=== PATIENT | female | born 1985 | race Caucasian/White ===

== ENCOUNTER 2016-11-21 12:51 | Inpatient (IN) | payer MEDICAID ==
[~2016-11-21] VITALS: Ht 152.4 cm; Wt 60.8 kg
[2016-11-21] MEDS ORDERED: IOHEXOL-300 100 ML BOTTLE ONE (14:47)
[2016-11-21] MEDS ORDERED: SODIUM CHLORIDE 0.9% 10ML VIAL ONE (14:47)
[2016-11-21 19:30] LABS: BASOPHILS % 0.6 % (0.0-2.0); HEMATOCRIT. 32.1 % (36.0-48.0); HEMOGLOBIN. 10.9 g/dL (12.0-16.0); LYMPHOCYTES % 33.7 % (20.0-50.0); MEAN CORPUSCULAR HEMOGLOBIN 29.1 pg (28.0-32.0); MEAN CORPUSCULAR VOLUME 86.1 fL (81.0-99.0); MEAN PLATELET VOLUME 7.4 fl (7.4-10.4); MONOCYTES % 9.3 % (2.0-8.0); NEUTROPHILS % 52.4 % (40.0-76.0); PLATELET 276 x1000/uL (130-400); RED BLOOD CELL COUNT 3.73 mill/uL (4.2-5.4); RED CELL DISTRIBUTION WIDTH 13.7 % (11.6-14.6)
[2016-11-21 19:35] LABS: CHLORIDE 109 mEq/L (98-107)
[2016-11-21 19:43] LABS: CARBON DIOXIDE 24 mEq/L (21-32)
[2016-11-21] MEDS ORDERED: ACETAMINOPHEN 325MG TABLET PO PRN (22:00)
[2016-11-21] MEDS ORDERED: CLONIDINE 0.1MG TABLET PO PRN (22:00)
[2016-11-21] MEDS ORDERED: TRAMADOL 50MG TABLET PO PRN (22:00)
[2016-11-21] MEDS ORDERED: LORAZEPAM 2MG/ML CPJ IV PRN (22:00)
[2016-11-21] MEDS ORDERED: MAGNESIUM/ALUMINUM HYDROXIDE/SIMETHICONE 30ML UDC PO PRN (22:00)
[2016-11-21] MEDS: SODIUM CHLORIDE 0.9% INJ 3ML FLUSH IVF SCH (22:23)
[2016-11-21 23:08] LABS: CLARITY URINE CLEAR (CLEAR); COLOR URINE YELLOW (YELLOW); GLUCOSE URINE NEGATIVE (NEGATIVE); KETONES URINE NEGATIVE (NEGATIVE); LEUKOCYTE ESTERASE URINE 1+ (NEGATIVE); NITRITE URINE POSITIVE (NEGATIVE); OCCULT BLOOD URINE NEGATIVE (NEGATIVE); PH URINE 7.5 (4.5-8.0); PROTEIN URINE NEGATIVE (NEGATIVE); SPECIFIC GRAVITY URINE 1.019 (1.005-1.030); UROBILINOGEN URINE 0.2 E.U./dL (0.2-1.0)
[2016-11-22] MEDS ORDERED: POTASSIUM CHLORIDE 20MEQ TABLET SR PO SCH (02:45)
[2016-11-22] MEDS ORDERED: SODIUM CHLORIDE 10% FOR INH 15ML VIAL NEB INH NR (05:15)
[2016-11-22 06:20] VITALS: BP 100/65
[2016-11-22 08:00] VITALS: BP 100/71
[2016-11-22] MEDS ORDERED: ABAC1TAB14 PO (10:52)
[2016-11-22 12:00] VITALS: BP 110/60
[2016-11-22] MEDS: SODIUM CHLORIDE 0.9% INJ 3ML FLUSH IVF SCH ×2 (14:26→21:03)
[2016-11-22] MEDS: CEFTRIAXONE 1 G PREMIX 50 ML IV SCH (15:50)
[2016-11-22] MEDS: AZITHROMYCIN 500 MG TABLET PO SCH (15:50)
[2016-11-22 16:00] VITALS: BP 100/64
[2016-11-22 20:00] VITALS: BP 93/64
[2016-11-22] MEDS ORDERED: PATIENT OWN MED PO SCH (20:00)
[2016-11-23] VITALS (7 sets, daily range): BP systolic 85–103; BP diastolic 20–70
[2016-11-23] MEDS: SODIUM CHLORIDE 0.9% INJ 3ML FLUSH IVF SCH ×3 (05:53→21:50)
[2016-11-23 06:43] LABS: HEPATITIS B SURFACE ANTIGEN NEGATIVE
[2016-11-23] MEDS: AZITHROMYCIN 500 MG TABLET PO SCH (09:22)
[2016-11-23] MEDS: CEFTRIAXONE 1 G PREMIX 50 ML IV SCH (15:51)
[2016-11-23] MEDS: TRIUMEQ PO SCH (21:49)
[2016-11-24] VITALS: BP 97/56
[2016-11-24 04:00] VITALS: BP 125/75
[2016-11-24] MEDS: SODIUM CHLORIDE 0.9% INJ 3ML FLUSH IVF SCH ×3 (06:00→20:45)
[2016-11-24 06:30] LABS: CARBON DIOXIDE 21 mEq/L (21-32); CHLORIDE 106 mEq/L (98-107)
[2016-11-24 06:33] LABS: BASOPHILS % 0.5 % (0.0-2.0); HEMATOCRIT. 33.2 % (36.0-48.0); HEMOGLOBIN. 11.4 g/dL (12.0-16.0); LYMPHOCYTES % 33.2 % (20.0-50.0); MEAN CORPUSCULAR HEMOGLOBIN 29.8 pg (28.0-32.0); MEAN CORPUSCULAR VOLUME 86.9 fL (81.0-99.0); MEAN PLATELET VOLUME 8.3 fl (7.4-10.4); NEUTROPHILS % 48.3 % (40.0-76.0); PLATELET 268 x1000/uL (130-400); RED BLOOD CELL COUNT 3.82 mill/uL (4.2-5.4); RED CELL DISTRIBUTION WIDTH 14.3 % (11.6-14.6)
[2016-11-24 08:00] VITALS: BP 99/56
[2016-11-24 09:27] LABS: ABSOLUTE EOSINOPHILS 0.8 x10E3/uL (0.0-0.4); ABSOLUTE MONOCYTES 1.2 x10E3/uL (0.1-0.9); ABSOLUTE NEUTROPHILS 7.6 x10E3/uL (1.4-7.0); BASOPHILS 0 % (.); HEMATOCRIT 36.9 % (34.0-46.6); HEMOGLOBIN 12.2 g/dL (11.1-15.9); IMMATURE GRANULOCYTES 0 % (.); LYMPHOCYTES 30 % (.); MEAN CORPUSCULAR HEMOGLOBIN 29.6 pg (26.6-33.0); MEAN CORPUSCULAR HGB CONC. 33.1 g/dL (31.5-35.7); MEAN CORPUSCULAR VOLUME 90 fL (79-97); MONOCYTES 9 % (.); NEUTROPHILS 55 % (.); PLATELETS 315 x10E3/uL (150-379); RBC 4.12 x10E6/uL (3.77-5.28); RED CELL DISTRIBUTION WIDTH 14.3 % (12.3-15.4); WBC 13.6 x10E3/uL (3.4-10.8)
[2016-11-24 12:00] VITALS: BP 129/71
[2016-11-24 13:16] LABS: % CD 4 POS. LYMPHOCYTES 11.1 % (30.8-58.5); % CD 8 POS. LYMPH 54.8 % (12.0-35.5); ABSOLUTE CD 3 2680 /uL (622-2402); ABSOLUTE CD 4 HELPER 444 /uL (359-1519); ABSOLUTE CD 8 SUPPRESSOR 2192 /uL (109-897)
[2016-11-24 16:00] VITALS: BP 112/72
[2016-11-24 18:06] LABS: QFT MITOGEN VALUE 2.75 IU/mL (.); QFT TB AG VALUE 0.08 IU/mL (.); QFT TB GOLD Negative (Negative)
[2016-11-24 20:00] VITALS: BP 97/63
[2016-11-24] MEDS: TRIUMEQ PO SCH (20:45)
[2016-11-25] VITALS: BP 112/67
[2016-11-25 04:00] VITALS: BP 103/70
[2016-11-25] MEDS: SODIUM CHLORIDE 0.9% INJ 3ML FLUSH IVF SCH ×3 (06:39→20:08)
[2016-11-25 08:00] VITALS: BP 97/59
[2016-11-25 12:00] VITALS: BP 95/75
[2016-11-25 16:00] VITALS: BP 96/62
[2016-11-25 20:00] VITALS: BP 92/57
[2016-11-25] MEDS: TRIUMEQ PO SCH (20:07)
[2016-11-26] VITALS: BP 116/66
[2016-11-26 04:00] VITALS: BP 96/59
[2016-11-26] MEDS: SODIUM CHLORIDE 0.9% INJ 3ML FLUSH IVF SCH ×3 (06:18→22:30)
[2016-11-26 08:00] VITALS: BP 101/68
[2016-11-26 12:00] VITALS: BP 105/71
[2016-11-26 16:00] VITALS: BP 105/63
[2016-11-26 20:00] VITALS: BP 107/61
[2016-11-26] MEDS: TRIUMEQ PO SCH (20:01)
[2016-11-27] VITALS: BP 96/51
[2016-11-27 04:00] VITALS: BP 117/61
[2016-11-27 05:25] LABS: BASOPHILS % 0.9 % (0.0-2.0); EOSINOPHILS % 8.3 % (0.0-5.0); HEMATOCRIT. 32.9 % (36.0-48.0); MEAN CORPUSCULAR HEMOGLOBIN 29.4 pg (28.0-32.0); MEAN CORPUSCULAR VOLUME 87.6 fL (81.0-99.0); MEAN PLATELET VOLUME 8.2 fl (7.4-10.4); MONOCYTES % 8.4 % (2.0-8.0); NEUTROPHILS % 37.4 % (40.0-76.0); PLATELET 286 x1000/uL (130-400); RED BLOOD CELL COUNT 3.75 mill/uL (4.2-5.4); RED CELL DISTRIBUTION WIDTH 13.8 % (11.6-14.6)
[2016-11-27] MEDS: SODIUM CHLORIDE 0.9% INJ 3ML FLUSH IVF SCH ×3 (06:03→22:00)
[2016-11-27 06:46] LABS: CARBON DIOXIDE 22 mEq/L (21-32); CHLORIDE 107 mEq/L (98-107); PHOSPHORUS 3.7 mg/dL (2.5-4.9)
[2016-11-27 08:00] VITALS: BP 100/58
[2016-11-27 12:00] VITALS: BP 114/68
[2016-11-27 16:00] VITALS: BP 110/70
[2016-11-27 20:00] VITALS: BP 101/66
[2016-11-27] MEDS: TRIUMEQ PO SCH (20:33)
[2016-11-28] VITALS: BP 97/62
[2016-11-28 04:00] VITALS: BP 96/52
[2016-11-28 08:00] VITALS: BP 90/55
[2016-11-28 12:00] VITALS: BP 105/60
[2016-11-28] MEDS: SODIUM CHLORIDE 0.9% INJ 3ML FLUSH IVF SCH (14:00)
[2016-11-28 16:00] VITALS: BP 100/63
[2016-11-28 20:00] VITALS: BP 103/64
[2016-11-28] MEDS: TRIUMEQ PO SCH (21:22)
[2016-11-29] VITALS: BP 95/56
[2016-11-29 04:00] VITALS: BP 97/60
[2016-11-29 08:00] VITALS: BP 99/61
[2016-11-29 12:00] VITALS: BP 109/64
[2016-11-29] MEDS: SODIUM CHLORIDE 0.9% INJ 3ML FLUSH IVF SCH ×2 (13:50→21:19)
[2016-11-29 16:00] VITALS: BP 101/64
[2016-11-29 20:00] VITALS: BP 94/61
[2016-11-29] MEDS: TRIUMEQ PO SCH (21:21)
[2016-11-30] VITALS: BP 92/55
[2016-11-30] MEDS: SODIUM CHLORIDE 0.9% INJ 3ML FLUSH IVF SCH ×3 (06:00→20:55)
[2016-11-30 08:00] VITALS: BP 95/56
[2016-11-30 12:00] VITALS: BP 96/68
[2016-11-30] MEDS ORDERED: SODIUM CHLORIDE 10% FOR INH 15ML VIAL NEB INH NR (12:30)
[2016-11-30 16:00] VITALS: BP 103/70
[2016-11-30 20:00] VITALS: BP 92/58
[2016-11-30] MEDS: TRIUMEQ PO SCH (20:52)
[2016-12-01] VITALS: BP 84/48
[2016-12-01 04:00] VITALS: BP 88/56
[2016-12-01] MEDS: SODIUM CHLORIDE 0.9% INJ 3ML FLUSH IVF SCH ×3 (06:45→20:22)
[2016-12-01 08:00] VITALS: BP 95/50
[2016-12-01 16:00] VITALS: BP 98/58
[2016-12-01 20:00] VITALS: BP 94/66
[2016-12-01] MEDS: TRIUMEQ PO SCH (20:20)
[2016-12-02] VITALS (7 sets, daily range): BP systolic 91–121; BP diastolic 53–77
[2016-12-02] MEDS: SODIUM CHLORIDE 0.9% INJ 3ML FLUSH IVF SCH ×3 (05:44→22:00)
[2016-12-02] MEDS: TRIUMEQ PO SCH (19:32)
[2016-12-03] VITALS: BP 121/69
[2016-12-03 04:00] VITALS: BP 98/50
[2016-12-03] MEDS: SODIUM CHLORIDE 0.9% INJ 3ML FLUSH IVF SCH ×3 (05:17→21:56)
[2016-12-03 08:00] VITALS: BP 98/69
[2016-12-03 12:00] VITALS: BP 106/74
[2016-12-03 15:35] VITALS: BP 110/74
[2016-12-03 20:00] VITALS: BP 101/65
[2016-12-03] MEDS: TRIUMEQ PO SCH (20:50)
[2016-12-04] VITALS: BP 93/56
[2016-12-04 04:00] VITALS: BP 94/62
[2016-12-04] MEDS: SODIUM CHLORIDE 0.9% INJ 3ML FLUSH IVF SCH ×3 (05:20→21:02)
[2016-12-04 08:00] VITALS: BP 99/66
[2016-12-04 12:00] VITALS: BP 106/66
[2016-12-04 16:20] VITALS: BP 100/63
[2016-12-04 20:00] VITALS: BP 95/56
[2016-12-04] MEDS: TRIUMEQ PO SCH (21:01)
[2016-12-05] VITALS: BP 101/57
[2016-12-05 04:00] VITALS: BP 88/57
[2016-12-05] MEDS: SODIUM CHLORIDE 0.9% INJ 3ML FLUSH IVF SCH ×3 (06:00→22:00)
[2016-12-05 08:00] VITALS: BP 102/61
[2016-12-05 16:13] VITALS: BP 112/62
[2016-12-05] MEDS ORDERED: RIFABUTIN 150 MG PO NR (18:00)
[2016-12-05] MEDS: ETHAMBUTOL HCL 100 MG PO SCH (18:21)
[2016-12-05 20:00] VITALS: BP 107/71
[2016-12-05] MEDS: TRIUMEQ PO SCH (20:46)
[2016-12-05] MEDS: CLARITHROMYCIN 500MG TABLET PO SCH (20:52)
[2016-12-06] VITALS: BP 99/67
[2016-12-06 04:00] VITALS: BP 106/63
[2016-12-06] MEDS: SODIUM CHLORIDE 0.9% INJ 3ML FLUSH IVF SCH ×3 (05:22→20:30)
[2016-12-06 08:00] VITALS: BP 98/68
[2016-12-06] MEDS: RIFABUTIN 150 MG PO SCH (08:34)
[2016-12-06] MEDS: CLARITHROMYCIN 500MG TABLET PO SCH ×2 (08:34→20:25)
[2016-12-06] MEDS: ETHAMBUTOL HCL 100 MG PO SCH (08:34)
[2016-12-06 12:00] VITALS: BP 91/63
[2016-12-06 16:00] VITALS: BP 92/65
[2016-12-06] MEDS: ETHAMBUTOL HCL 400MG TABLET PO SCH (17:39)
[2016-12-06 20:11] VITALS: BP 103/65
[2016-12-06] MEDS: TRIUMEQ PO SCH (20:26)
[2016-12-07] VITALS: BP 97/67
[2016-12-07 04:00] VITALS: BP 100/66
[2016-12-07] MEDS: SODIUM CHLORIDE 0.9% INJ 3ML FLUSH IVF SCH ×3 (05:02→22:00)
[2016-12-07 08:32] VITALS: BP 106/63
[2016-12-07] MEDS: RIFABUTIN 150 MG PO SCH (08:38)
[2016-12-07] MEDS: CLARITHROMYCIN 500MG TABLET PO SCH ×2 (08:39→20:25)
[2016-12-07] MEDS: ETHAMBUTOL HCL 100 MG PO SCH (08:39)
[2016-12-07] MEDS: ETHAMBUTOL HCL 400MG TABLET PO SCH (08:39)
[2016-12-07 12:19] VITALS: BP 101/66
[2016-12-07] MEDS ORDERED: SODIUM CHLORIDE 10% FOR INH 15ML VIAL NEB INH NR (16:00)
[2016-12-07 16:28] VITALS: BP 107/59
[2016-12-07 20:00] VITALS: BP 95/62
[2016-12-07] MEDS: TRIUMEQ PO SCH (20:26)
[2016-12-08] VITALS: BP 94/48
[2016-12-08 04:00] VITALS: BP 88/51
[2016-12-08] MEDS: SODIUM CHLORIDE 0.9% INJ 3ML FLUSH IVF SCH ×3 (05:00→21:08)
[2016-12-08 08:00] VITALS: BP 94/59
[2016-12-08] MEDS: CLARITHROMYCIN 500MG TABLET PO SCH ×2 (08:49→20:58)
[2016-12-08] MEDS: ETHAMBUTOL HCL 400MG TABLET PO SCH (08:49)
[2016-12-08] MEDS: RIFABUTIN 150 MG PO SCH (08:49)
[2016-12-08] MEDS: ETHAMBUTOL HCL 100 MG PO SCH (08:49)
[2016-12-08 12:00] VITALS: BP 120/66
[2016-12-08 16:00] VITALS: BP 97/61
[2016-12-08 20:00] VITALS: BP 106/66
[2016-12-08] MEDS: TRIUMEQ PO SCH (20:58)
[2016-12-09] VITALS: BP 98/56
[2016-12-09 04:00] VITALS: BP 85/53
[2016-12-09] MEDS: SODIUM CHLORIDE 0.9% INJ 3ML FLUSH IVF SCH ×3 (05:14→22:00)
[2016-12-09 08:00] VITALS: BP 87/55
[2016-12-09] MEDS: RIFABUTIN 150 MG PO SCH (09:08)
[2016-12-09] MEDS: ETHAMBUTOL HCL 400MG TABLET PO SCH (09:08)
[2016-12-09] MEDS: CLARITHROMYCIN 500MG TABLET PO SCH ×2 (09:09→20:00)
[2016-12-09] MEDS: ETHAMBUTOL HCL 100 MG PO SCH (09:09)
[2016-12-09 12:00] VITALS: BP 91/58
[2016-12-09 16:00] VITALS: BP 95/63
[2016-12-09 19:58] VITALS: BP 88/58
[2016-12-09] MEDS: TRIUMEQ PO SCH (20:00)
[2016-12-10 00:01] VITALS: BP 91/57
[2016-12-10 04:00] VITALS: BP 90/56
[2016-12-10] MEDS: SODIUM CHLORIDE 0.9% INJ 3ML FLUSH IVF SCH ×3 (05:53→21:22)
[2016-12-10] MEDS: RIFABUTIN 150 MG PO SCH (09:45)
[2016-12-10] MEDS: ETHAMBUTOL HCL 100 MG PO SCH (09:45)
[2016-12-10] MEDS: ETHAMBUTOL HCL 400MG TABLET PO SCH (09:45)
[2016-12-10] MEDS: CLARITHROMYCIN 500MG TABLET PO SCH ×2 (09:46→21:22)
[2016-12-10 09:53] VITALS: BP 101/67
[2016-12-10 20:00] VITALS: BP 99/62
[2016-12-10] MEDS: TRIUMEQ PO SCH (20:00)
[2016-12-11 04:00] VITALS: BP 94/56
[2016-12-11 08:00] VITALS: BP 92/60
[2016-12-11] MEDS: ETHAMBUTOL HCL 100 MG PO SCH (08:18)
[2016-12-11] MEDS: ETHAMBUTOL HCL 400MG TABLET PO SCH (08:18)
[2016-12-11] MEDS: RIFABUTIN 150 MG PO SCH (08:18)
[2016-12-11] MEDS: CLARITHROMYCIN 500MG TABLET PO SCH ×2 (08:18→19:52)
[2016-12-11 13:00] VITALS: BP 98/62
[2016-12-11 16:30] VITALS: BP 92/58
[2016-12-11] MEDS: TRIUMEQ PO SCH (19:52)
[2016-12-11] MEDS: SODIUM CHLORIDE 0.9% INJ 3ML FLUSH IVF SCH ×2 (19:55→22:14)
[2016-12-11 20:00] VITALS: BP 95/67
[2016-12-12] VITALS (7 sets, daily range): BP systolic 83–94; BP diastolic 48–69
[2016-12-12 06:23] LABS: BASOPHILS % 0.3 % (0.0-2.0); EOSINOPHILS % 1.7 % (0.0-5.0); HEMATOCRIT. 32.5 % (36.0-48.0); HEMOGLOBIN. 11.3 g/dL (12.0-16.0); LYMPHOCYTES % 34.7 % (20.0-50.0); MEAN CORPUSCULAR HEMOGLOBIN 30.4 pg (28.0-32.0); MEAN CORPUSCULAR VOLUME 87.2 fL (81.0-99.0); MEAN PLATELET VOLUME 8.1 fl (7.4-10.4); MONOCYTES % 10.9 % (2.0-8.0); NEUTROPHILS % 52.4 % (40.0-76.0); PLATELET 217 x1000/uL (130-400); RED BLOOD CELL COUNT 3.73 mill/uL (4.2-5.4); RED CELL DISTRIBUTION WIDTH 14.6 % (11.6-14.6)
[2016-12-12 06:57] LABS: CARBON DIOXIDE 27 mEq/L (21-32); CHLORIDE 101 mEq/L (98-107)
[2016-12-12] MEDS: RIFABUTIN 150 MG PO SCH (08:22)
[2016-12-12] MEDS: CLARITHROMYCIN 500MG TABLET PO SCH ×2 (08:22→21:28)
[2016-12-12] MEDS: ETHAMBUTOL HCL 100 MG PO SCH (08:22)
[2016-12-12] MEDS: ETHAMBUTOL HCL 400MG TABLET PO SCH (08:23)
[2016-12-12] MEDS: SODIUM CHLORIDE 0.9% INJ 3ML FLUSH IVF SCH ×2 (13:35→21:29)
[2016-12-12] MEDS: TRIUMEQ PO SCH (21:28)
[2016-12-13] VITALS: BP 103/66
[2016-12-13 04:00] VITALS: BP 101/63
[2016-12-13] MEDS: SODIUM CHLORIDE 0.9% INJ 3ML FLUSH IVF SCH ×4 (06:00→20:29)
[2016-12-13 08:00] VITALS: BP 94/63
[2016-12-13] MEDS: ETHAMBUTOL HCL 400MG TABLET PO SCH (09:26)
[2016-12-13] MEDS: RIFABUTIN 150 MG PO SCH (09:26)
[2016-12-13] MEDS: ETHAMBUTOL HCL 100 MG PO SCH (09:26)
[2016-12-13 12:00] VITALS: BP 92/61
[2016-12-13 16:00] VITALS: BP 100/68
[2016-12-13 20:00] VITALS: BP 95/59
[2016-12-13] MEDS: TRIUMEQ PO SCH (20:19)
[2016-12-14] VITALS: BP 97/64
[2016-12-14 04:00] VITALS: BP 94/64
[2016-12-14 08:00] VITALS: BP 94/61
[2016-12-14] MEDS: RIFABUTIN 150 MG PO SCH (08:56)
[2016-12-14] MEDS: ETHAMBUTOL HCL 400MG TABLET PO SCH (08:56)
[2016-12-14] MEDS: ETHAMBUTOL HCL 100 MG PO SCH (08:56)
[2016-12-14 18:08] VITALS: BP 115/71
== END 2016-12-14 20:00 | disposition home or self-care (01) | DRG 892 ==
LOC: ER 13:07 → 8WST 21:41
PROVIDERS: ADMIT Internal Medicine; ATTEND Internal Medicine
DX: A15.0 Tuberculosis of lung (principal); B20 Human immunodeficiency virus [HIV] disease; E46 Unspecified protein-calorie malnutrition; E87.1 Hypo-osmolality and hyponatremia; J98.4 Other disorders of lung; D64.9 Anemia, unspecified; R59.0 Localized enlarged lymph nodes; E87.6 Hypokalemia; S16.1XXA Strain of muscle, fascia and tendon at neck level, initial encounter; R91.8 Other nonspecific abnormal finding of lung field; Z79.899 Other long term (current) drug therapy; Z78.9 Other specified health status; Z68.26 Body mass index [BMI] 26.0-26.9, adult
CPT/HCPCS: 36415; 71010; 71020; 71260; 72125; 80048; 80076; 81001; 81025; 83735; 84100; 85025; 85651; 86140; 86359; 86360; 86480; 86635; 86803; 87116; 87340; 87556; 87899; 93005; 94640; 94664; 99285; A4216; J0696; J7050; J7131; Q9967